=== PATIENT | male | born 1985 | race Caucasian/White ===

== ENCOUNTER 2016-12-11 13:29 | Emergency (ER) | payer SELFPAY ==
[2016-12-11 13:41] VITALS: BP 139/96; PULSE 84; RESP 20; TEMP 98.2; O2SAT 97
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
== END 2016-12-11 14:31 | disposition home or self-care (01) ==
DX: M54.32 Sciatica, left side (principal); F17.200 Nicotine dependence, unspecified, uncomplicated